=== PATIENT | female | born 1955 | race Caucasian/White ===

== ENCOUNTER 2019-04-09 16:56 | Emergency (ER) | payer OTHER ==
[~2019-04-09] VITALS: Ht 170.2 cm; Wt 66.5 kg
[2019-04-09 20:50] VITALS: BP 134/81
== END 2019-04-09 20:59 | disposition home or self-care (01) ==
LOC: ER 16:57
DX: M25.562 Pain in left knee (principal); M25.462 Effusion, left knee
CPT/HCPCS: 29505; 73560; 99283